=== PATIENT | female | born 1995 | race Caucasian/White ===

== ENCOUNTER 2018-09-05 11:51 | Emergency (ER) | payer MEDICAID ==
[~2018-09-05] VITALS: Ht 162.6 cm; Wt 59.5 kg
[2018-09-05 11:52] VITALS: Ht 162.6 cm; Wt 59.5 kg
[2018-09-05 12:31] LABS: BASOPHILS 0.4 % (0-2); EOSINOPHILS 1.5 % (0-7); HEMATOCRIT 37.6 % (36.0-48.0); HEMOGLOBIN 12.9 g/dL (12-16); IMMATURE GRANULOCYTES 0.1 % (0-5); LYMPHOCYTES 19.9 % (15-50); MCH 29.1 pg (26.0-34.0); MCHC 34.3 g/dL (31.0-37.0); MCV 84.7 fL (80.0-100.0); MEAN PLATELET VOLUME 10.1 fL (7.4-10.4); MONOCYTES 8.3 % (2-11); NEUTROPHILS 69.8 % (40-80); PLATELET COUNT 303 10x3/uL (130-400); RBC 4.44 10x6/uL (4.00-5.40)
[2018-09-05 12:39] LABS: ALBUMIN 3.8 g/dL (3.4-5.0); ALKALINE PHOSPHATASE 67 U/L (46-116); ALT (SGPT) 14 U/L (10-68); BILIRUBIN - TOTAL 0.46 mg/dL (0.2-1.3); CALC OSMOLALITY 279 mosm/kg (275-300); CALCIUM 9.2 mg/dL (8.5-10.1); CARBON DIOXIDE 29.5 mmol/L (21.0-32.0); CHLORIDE - SERUM 102 mmol/L (98-107); CREATININE - SERUM 0.8 mg/dL (0.6-1.3); GLUCOSE 90 mg/dL (74-106); POTASSIUM - SERUM 3.7 mmol/L (3.5-5.1); PROTEIN - SERUM 7.5 g/dL (6.4-8.2); SODIUM 141 mmol/L (136-145); UREA NITROGEN 10 mg/dL (7-18); eGFR NON AFRICAN AMERICAN > 90 mL/min (90-120)
[2018-09-05 13:23] LABS: HCG SERUM NEGATIVE (NEGATIVE)
[2018-09-05 13:37] VITALS: BP 125/75
== END 2018-09-05 13:32 | disposition home or self-care (01) ==
LOC: D.ER 11:51
PROVIDERS: Family Medicine
DX: R55 Syncope and collapse (principal)